=== PATIENT | female | born 1995 | race African-American/Black ===

== ENCOUNTER 2020-09-03 18:40 | Emergency (ER) | payer OTHER ==
[~2020-09-03] VITALS: Ht 165.1 cm; Wt 81.6 kg
[2020-09-03 18:52] VITALS: BP 137/72
--- NOTE | 2020-09-03 19:01 | NUR ---
ED Nurse Note: Patient was BIBA from sober living home with abdominal and back pain, states she is , no vaginal bleeding.
--- NOTE | 2020-09-03 19:15 | NUR ---
ED Nurse Note: Urine sent to lab.
--- NOTE | 2020-09-03 19:46 | Emergency Room Report ---
History of Present Illness General Chief Complaint: Abdominal Pain Source: Patient Present Illness HPI 25-year-old female presents to the emergency department brought by ambulance from her sober living facility initially complaining of abdominal pain and back pain. Upon evaluation patient reported sore throat. Patient reports 5 out of 10 severity. and reports a "yeast taste". She also is reporting positive test. She reports some abdominal tenderness in the lower abdomen. She denies vaginal bleeding or discharge. She denies urinary frequency, urgency, hematuria or dysuria. She denies fevers or chills, nausea or vomiting, constipation or diarrhea. She denies trauma or fall. No other aggravating or relieving factors. 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: No Patient History Past Medical History: see triage record, psych hx Past Surgical History: none Pertinent Family History: none Now: Yes Reviewed Nursing Documentation: PMH: Agreed; PSxH: Agreed Nursing Documentation-PMH Past Medical History: No History, Except For History Of Psychiatric Problem: Yes Review of Systems All Other Systems: negative except mentioned in HPI Physical Exam Vital Signs Date Time Temp Pulse Resp B/P (MAP) Pulse Ox O2 Delivery O2 Flow Rate FiO2 09/03/20 18:41 97.7 81 18 137/72 (93) 100 Room Air Sp02 EP Interpretation: reviewed, normal General Appearance: no apparent distress, alert, GCS 15, non-toxic Head: normocephalic, atraumatic Eyes: bilateral eye normal inspection, bilateral eye PERRL ENT: hearing grossly normal, normal pharynx, normal voice, TMs + canals normal, uvula midline Neck: full range of motion, no meningismus, no bony tend Respiratory: chest non-tender, lungs clear, normal breath sounds, no wheezing, speaking full sentences Cardiovascular #1: regular rate, rhythm Gastrointestinal: normal bowel sounds, soft, tenderness - lower abdomen- mild tenderness to very deep palpation. Rectal: deferred Genitourinary: normal inspection, no CVA tenderness Musculoskeletal: back normal, normal range of motion, gait/station normal, non- tender Neurologic: alert, motor strength/tone normal, oriented x3, sensory intact, responsive, speech normal Psychiatric: judgement/insight normal Skin: no rash Medical Decision Making PA Attestation Dr. Moffett is my supervising Physician whom patient management has been discussed with. Diagnostic Impression: Primary Impression: Positive test ER Course 25-year-old female presents to the emergency department brought by ambulance from her sober living facility initially complaining of abdominal pain and back pain. Upon evaluation patient reported sore throat. Patient reports 5 out of 10 severity. and reports a "yeast taste". She also is reporting positive test. She reports some abdominal tenderness in the lower abdomen. She denies vaginal bleeding or discharge. She denies urinary frequency, urgency, hematuria or dysuria. She denies fevers or chills, nausea or vomiting, constipation or diarrhea. She denies trauma or fall. No other aggravating or relieving factors. Ddx considered but are not limited to Diverticulitis, acute appy, diarrhea,UC, PUD, GE, pancreatitis, gallstone, acute intoxication, myalgia, , ectopic , UTI, renal stone just to name a few. Vital signs: are WNL, pt. is afebrile H&PE are most consistent with Pt. with very bazaar affect. Non-toxic in appearance, NAD. ORDERS: -Urine HCg: Positive -UA: Pending at time of sign out. -UDS: positive for amphetamines -CBC;Pending at time of sign out. -CMP: Pending at time of sign out. -HCG Quant:Pending at time of sign out. - PELVIC US: Pending at time of sign out. ED INTERVENTIONS: - --Pt. signed out to attending physician Dr. Moffett. Labs Test 09/03/20 19:15 09/03/20 19:20 09/03/20 20:15 Urine Color Pale yellow Urine Appearance Clear Urine pH 7 (4.5-8.0) Urine Specific [place] 1.010 (1.005-1.035) Urine Protein Negative (NEGATIVE) Urine Glucose (UA) Negative (NEGATIVE) Urine Ketones Negative (NEGATIVE) Urine Blood Negative (NEGATIVE) Urine Nitrite Negative (NEGATIVE) Urine Bilirubin Negative (NEGATIVE) Urine Urobilinogen Normal MG/DL (0.0-1.0) Urine Leukocyte Esterase Negative (NEGATIVE) Urine HCG, Qualitative Negative (NEGATIVE) Urine Opiates Screen Negative (NEGATIVE) Urine Barbiturates Screen Negative (NEGATIVE) Phencyclidine (PCP) Screen Negative (NEGATIVE) Urine Amphetamines Screen Positive (NEGATIVE) Urine Benzodiazepines Screen Negative (NEGATIVE) Urine Cocaine Screen Negative (NEGATIVE) Urine Marijuana (THC) Screen Negative (NEGATIVE) White Blood Count 8.4 K/UL (4.8-10.8) Red Blood Count 4.76 M/UL (4.20-5.40) Hemoglobin 12.2 G/DL (12.0-16.0) Hematocrit 38.2 % (37.0-47.0) Mean Corpuscular Volume 80 FL (80-99) Mean Corpuscular Hemoglobin 25.7 PG (27.0-31.0) Mean Corpuscular Hemoglobin Concent 32.0 G/DL (32.0-36.0) Red Cell Distribution Width 15.3 % (11.6-14.8) Platelet Count 290 K/UL (150-450) Mean Platelet Volume 6.3 FL (6.5-10.1) Neutrophils (%) (Auto) 66.2 % (45.0-75.0) Lymphocytes (%) (Auto) 25.6 % (20.0-45.0) Monocytes (%) (Auto) 6.4 % (1.0-10.0) Eosinophils (%) (Auto) 0.3 % (0.0-3.0) Basophils (%) (Auto) 1.5 % (0.0-2.0) Sodium Level 135 MMOL/L (136-145) Potassium Level 3.6 MMOL/L (3.5-5.1) Chloride Level 100 MMOL/L (98-107) Carbon Dioxide Level 27 MMOL/L (21-32) Anion Gap 8 mmol/L (5-15) Blood Urea Nitrogen 7 mg/dL (7-18) Creatinine 0.7 MG/DL (0.55-1.30) Estimat Glomerular Filtration Rate > 60 mL/min (>60) Glucose Level 77 MG/DL (74-106) Calcium Level 9.4 MG/DL (8.5-10.1) Total Bilirubin 0.2 MG/DL (0.2-1.0) Aspartate Amino Transf (AST/SGOT) 20 U/L (15-37) Alanine Aminotransferase (ALT/SGPT) 22 U/L (12-78) Alkaline Phosphatase 68 U/L (46-116) Total Protein 6.9 G/DL (6.4-8.2) Albumin 3.2 G/DL (3.4-5.0) Globulin 3.7 g/dL Albumin/Globulin Ratio 0.9 (1.0-2.7) Lipase 118 U/L (73-393) Human Chorionic Gonadotropin, Quant 00750 mIU/mL (1-6) Last Vital Signs Date Time Temp Pulse Resp B/P (MAP) Pulse Ox O2 Delivery O2 Flow Rate FiO2 09/03/20 18:52 81 18 Room Air 09/03/20 18:52 97.7 137/72 100 Signed Out To: Dr. Moffett Scripts Doxylamine/Pyridoxine Hcl (PENNY FONSECA 10-10 MG TABLET) 1 Each Tablet. 1 EACH PO [facility], #30 TAB Prov: Nick Moffett MD 09/03/20 Kelli Reyes Sep 03, 2020 19:46
[2020-09-03 20:05] LABS: APPEARANCE,URINE CLEAR; BILIRUBIN, URINE NEGATIVE (NEGATIVE); COLOR,URINE PALE YELLOW; GLUCOSE, URINE (UA) NEGATIVE (NEGATIVE); KETONES,URINE NEGATIVE (NEGATIVE); LEUKOCYTE ESTERASE ,URINE NEGATIVE (NEGATIVE); NITRITE,URINE NEGATIVE (NEGATIVE); PH,URINE 7 (4.5-8.0); PROTEIN,URINE NEGATIVE (NEGATIVE); UROBILINOGEN,URINE NORMAL MG/DL (0.0-1.0)
--- NOTE | 2020-09-03 20:15 | NUR ---
ED Nurse Note: IV line established. Blood specimen collected, sent to lab.
--- NOTE | 2020-09-03 20:22 | NUR ---
ED Nurse Note: US at bedside.
[2020-09-03 20:44] LABS: ANION GAP 8 mmol/L (5-15); BLOOD UREA NITROGEN 7 mg/dL (7-18); CALCIUM 9.4 MG/DL (8.5-10.1); CARBON DIOXIDE 27 MMOL/L (21-32); CHLORIDE 100 MMOL/L (98-107); CREATININE 0.7 MG/DL (0.55-1.30); POTASSIUM 3.6 MMOL/L (3.5-5.1); SODIUM 135 MMOL/L (136-145)
[2020-09-03 20:49] LABS: ALANINE AMINOTRANSFERASE 22 U/L (12-78); ALBUMIN 3.2 G/DL (3.4-5.0); ALBUMIN/GLOBULIN RATIO 0.9 (1.0-2.7); ALKALINE PHOSPHATASE 68 U/L (46-116); ASPARTATE AMINO TRANSFERASE 20 U/L (15-37); BILIRUBIN,TOTAL 0.2 MG/DL (0.2-1.0)
--- NOTE | 2020-09-03 20:57 | Diagnostic Imaging Report ---
EXAM: US First Trimester , Transabdominal CLINICAL HISTORY: ABD PAIN TECHNIQUE: Real-time transabdominal obstetrical ultrasound of the maternal pelvis and a first trimester with image documentation. COMPARISON: No relevant prior studies available. FINDINGS: Gestation: Single live IUP with an estimated gestational age of 10 weeks and 1 day. Normal heart tones measure 158 bpm. Placenta/amniotic fluid: Cannot be adequately evaluated due to the early gestational age. Uterus/cervix: Unremarkable. No myometrial mass. Ovaries: Unremarkable. No mass. Free fluid: No free fluid. IMPRESSION: Single live IUP with an estimated gestational age of 10 weeks and 1 day.
[2020-09-03 20:59] LABS: BASOPHILS % (AUTO) 1.5 % (0.0-2.0); EOSINOPHILS % (AUTO) 0.3 % (0.0-3.0); HEMATOCRIT 38.2 % (37.0-47.0); HEMOGLOBIN 12.2 G/DL (12.0-16.0); LYMPHOCYTES % (AUTO) 25.6 % (20.0-45.0); MEAN CORPUSCULAR VOLUME 80 FL (80-99); MONOCYTES % (AUTO) 6.4 % (1.0-10.0); NEUTROPHILS % (AUTO) 66.2 % (45.0-75.0); PLATELET COUNT 290 K/UL (150-450); RED BLOOD COUNT 4.76 M/UL (4.20-5.40); RED CELL DISTRIBUTION WIDTH 15.3 % (11.6-14.8); WHITE BLOOD COUNT 8.4 K/UL (4.8-10.8)
[2020-09-03] MEDS ORDERED: DICLEGIS DR 101 EACH PO (21:11)
[2020-09-03 21:22] VITALS: BP 128/69
--- NOTE | 2020-09-03 21:22 | NUR ---
ED Nurse Note: Pt cleared by ERMD for discharge. DC instructions/prescription was given and explained to pt and verbalized understanding of teachings. All medical deviecs such as ID band and IV line removed. Pt is AAO x4, ambulatory and left with all personal belongings. [employer] provided.
== END 2020-09-03 21:22 | disposition home or self-care (01) ==
LOC: EDBD 18:40 → EMR 19:20
DX: O26.91 Pregnancy related conditions, unspecified, first trimester (principal); Z3A.10 10 weeks gestation of pregnancy; M54.9 Dorsalgia, unspecified; R07.0 Pain in throat; R10.30 Lower abdominal pain, unspecified
CPT/HCPCS: 36415; 76801; 80053; 80307; 81003; 81025; 83690; 84702; 85025; 86850; 86900; 86901; Z7502; 99284